=== PATIENT | female | born 1965 | race Caucasian/White ===

== ENCOUNTER 2018-04-05 16:04 | Inpatient (IN) | payer OTHER ==
[~2018-04-05] VITALS: Ht 160 cm; Wt 78.9 kg
[2018-05-02] MEDS ORDERED: JENTADUETO 2.51 EACH PO (09:37)
[2018-05-02] MEDS ORDERED: DIOVAN HCT 1601 EACH PO (09:37)
[2018-05-02] MEDS ORDERED: LIPITOR40 MG PO (09:38)
[2018-05-02] MEDS ORDERED: TOPROL XL100 MG PO (09:38)
[2018-05-02] MEDS ORDERED: VITAMIN D5000 UNIT PO (09:38)
== END 2018-05-10 16:39 | disposition home or self-care (01) | DRG 660 ==
LOC: SURH 05-08 07:00 → SURG 05-08 08:30 → O/R 05-08 08:30 → SURG 05-08 18:14
PROVIDERS: Urology
PROC: 0T778DZ Dilation of Left Ureter with Intraluminal Device, Via Natural or Artificial Opening Endoscopic (ICD-10-PCS; 2018-05-08)
PROC: 4A033R1 Measurement of Arterial Saturation, Peripheral, Percutaneous Approach (ICD-10-PCS; 2018-05-08)
PROC: 3E0F7GC Introduction of Other Therapeutic Substance into Respiratory Tract, Via Natural or Artificial Opening (ICD-10-PCS; 2018-05-08)
PROC: 0TC18ZZ Extirpation of Matter from Left Kidney, Via Natural or Artificial Opening Endoscopic (ICD-10-PCS; principal; 2018-05-08 07:00)
PROC: B246ZZZ Ultrasonography of Right and Left Heart (ICD-10-PCS; 2018-05-09)
DX: N20.0 Calculus of kidney (principal); J95.89 Other postprocedural complications and disorders of respiratory system, not elsewhere classified; J98.11 Atelectasis; J81.1 Chronic pulmonary edema; R09.02 Hypoxemia

== ENCOUNTER 2018-05-12 18:21 | Emergency (ER) | payer OTHER ==
[~2018-05-12] VITALS: Ht 160 cm; Wt 79.8 kg
[~2018-05-12 18:21] MED LIST: DIOVAN HCT 1601 EACH PO; JENTADUETO 2.51 EACH PO; LIPITOR40 MG PO; TOPROL XL100 MG PO; VITAMIN D5000 UNIT PO
== END 2018-05-12 22:05 | disposition home or self-care (01) ==
LOC: ER 18:21
DX: R06.02 Shortness of breath (principal); F06.4 Anxiety disorder due to known physiological condition

== ENCOUNTER → 2022-01-10 | Emergency (ER) | payer OTHER ==
[~2022-01-10] VITALS: Ht 160 cm; Wt 77.1 kg
[~2022-01-10] MED LIST changes: +ISOSORBIDE MONO30 MG; +ZITHROMAX200 MG
== END | disposition home or self-care (01) ==
LOC: ER 17:52
DX: J45.909 Unspecified asthma, uncomplicated (principal); R06.02 Shortness of breath; E11.9 Type 2 diabetes mellitus without complications; Z79.899 Other long term (current) drug therapy; I10 Essential (primary) hypertension; Z20.822 Contact with and (suspected) exposure to COVID-19